=== PATIENT | female | born 1985 | race Caucasian/White ===

== ENCOUNTER 2021-02-27 08:44 | Outpatient (CLI) | payer OTHER, SELFPAY ==
[2021-02-27 10:38] LABS: Volume Semen < 1.0 mL
[2021-02-27 10:39] LABS: Epithelial Count Semen 0-4 /hpf; Sperm Immotility 49 %; Sperm Non-Progressive Motility 1 %; Sperm Progressive Motility 50 %; Viscosity Semen Normal
[2021-02-27 10:40] LABS: Pathology Referral Yes
[2021-02-27 11:41] LABS: Side 1 7; Side 2 7; Side WITHIN 10% 0
== END 2021-02-27 08:45 | disposition home or self-care (01) ==
PROVIDERS: Visit Provider Obstetrics & Gynecology
DX: N97.9 Female infertility, unspecified (principal)
CPT/HCPCS: 80500; 89320

== ENCOUNTER 2025-01-20 16:28 | Outpatient (CLI) | payer OTHER, SELFPAY ==
--- NOTE | 2025-01-20 16:46 | XR_ITS ---
WS: [id number] Exam: XR wrist RT min 3V* [id number] Date/Time of Exam: 01/20/2025 4:54 PM Reason For Exam: PAIN IN RIGHT WRIST No fracture. The joints are preserved. Normal soft tissues. XR/XR wrist RT min 3V* [id number] IMPRESSION: 1. Normal RIGHT wrist.
== END 2025-01-20 16:29 | disposition home or self-care (01) ==
PROVIDERS: PCP Family Medicine; Visit Provider Family Medicine
DX: M25.531 Pain in right wrist (principal)
CPT/HCPCS: 73110

== ENCOUNTER 2025-05-16 14:03 | Outpatient (CLI) | payer OTHER, SELFPAY ==
--- NOTE | 2025-05-16 14:10 | MM_ITS ---
WS: [id number] BILATERAL 3D TOMOSYNTHESIS DIGITAL SCREENING MAMMOGRAM WITH CAD CLINICAL INFORMATION: ANNUAL SCREEN HISTORY: Screening mammogram. No current complaints. COMPARISON: Baseline TECHNIQUE: Bilateral CC and MLO. FINDINGS: The breast are composed of extremely dense tissue, which can limit the detection of small underlying mass lesions. No suspicious focal mass, asymmetry, calcifications, or architectural distortion. No evidence of malignancy. MM/MM scr tomosynthesis [id number] IMPRESSION: DENSITY: The breasts are extremely dense, which lowers the sensitivity of mammo graphy. BI-RADS: 1 - Negative FOLLOW UP: 1 Year Follow-up Recommend return to annual screening mammography.
== END 2025-05-16 14:04 | disposition home or self-care (01) ==
LOC: RAD 14:04
PROVIDERS: PCP Family Medicine; Visit Provider Family Medicine
DX: Z12.31 Encounter for screening mammogram for malignant neoplasm of breast (principal); R92.343 Mammographic extreme density, bilateral breasts
CPT/HCPCS: 77063; 77067